=== PATIENT | female | born 1955 | race Hispanic/Latino ===

== ENCOUNTER → 2023-02-06 | Outpatient (CLI) | payer BC | END | disposition home or self-care (01) | LOC: RAH 15:00 | PROVIDERS: ATTEND Family Medicine | DX: M47.816 Spondylosis without myelopathy or radiculopathy, lumbar region (principal); M54.42 Lumbago with sciatica, left side; M48.061 Spinal stenosis, lumbar region without neurogenic claudication | CPT/HCPCS: 72148 ==

== ENCOUNTER → 2023-03-02 | Outpatient (CLI) | payer BC | END | disposition home or self-care (01) | LOC: RAH 08:12 | PROVIDERS: ATTEND Neurological Surgery | DX: M47.817 Spondylosis without myelopathy or radiculopathy, lumbosacral region (principal); M43.26 Fusion of spine, lumbar region; M51.37 Other intervertebral disc degeneration, lumbosacral region; M48.07 Spinal stenosis, lumbosacral region | CPT/HCPCS: 72100 ==

== ENCOUNTER → 2023-03-08 | Outpatient (CLI) | payer BC | END | disposition home or self-care (01) | LOC: RAH 13:17 | PROVIDERS: ATTEND Internal Medicine | DX: I07.1 Rheumatic tricuspid insufficiency (principal); R94.31 Abnormal electrocardiogram [ECG] [EKG]; I10 Essential (primary) hypertension | CPT/HCPCS: 93306 ==

== ENCOUNTER 2023-03-13 14:00 | Observation (INO) | payer BC, MEDICARE ==
[~2023-03-13] VITALS: Ht 165.1 cm; Wt 70.0 kg
[2023-03-13 14:42] LABS: BASOPHILS % (AUTO) 0.2 % (0.0-5.0); EOSINOPHILS % (AUTO) 1.8 % (0.0-8.0); HEMATOCRIT 39.1 % (36-48); LYMPHOCYTES % (AUTO) 26.7 % (21.0-51.0); MEAN CORPUSCULAR HEMOGLOBIN 27.2 pg (27.0-33.0); MEAN CORPUSCULAR VOLUME 85.2 fL (79-99); MONOCYTES % (AUTO) 6.9 % (3.0-13.0); NEUTROPHILS % (AUTO) 64.1 % (40.0-77.0); PLATELET COUNT (AUTO) 289 K/uL (130-400); RED BLOOD CELL COUNT(AUTO) 4.59 MIL/uL (4.00-5.50); RED CELL DISTRIBUTION WIDTH 14.9 % (11.0-15.5); WHITE BLOOD COUNT (AUTO) 9.4 K/uL (4.8-10.8)
[2023-03-13 15:09] LABS: CREATININE 0.9 mg/dL (0.5-1.5); POTASSIUM 4.5 mmol/L (3.5-5.1)
[2023-03-13 15:24] VITALS: BP 119/62
[2023-03-13] MEDS ORDERED: BUPIVACAINE/EPI/PF 0.25% 30ML VIAL IJ SCH (20:30)
[2023-03-14] VITALS (27 sets, daily range): BP systolic 97–146; BP diastolic 48–75
[2023-03-14] MEDS ORDERED: LACTATED RINGERS 1000ML 1,000 ML IV ONE (06:05)
[2023-03-14] MEDS ORDERED: CEFAZOLIN SODIUM 2 GM VIAL ONE (06:05)
[2023-03-14] MEDS: CEFAZOLIN SODIUM 1 GM VIAL IVPB PRN ×2 (06:28→08:27)
[2023-03-14] MEDS ORDERED: PREG75CA75 PO (06:32)
[2023-03-14] MEDS ORDERED: OLME5TAB29 PO (06:32)
[2023-03-14] MEDS ORDERED: PRED5TAB PO (06:32)
[2023-03-14] MEDS ORDERED: CELE-84 PO (06:32)
[2023-03-14] MEDS ORDERED: MORPHINE PF 100MG/10ML AMP IV ONE (06:38)
[2023-03-14] MEDS ORDERED: CEFAZOLIN SODIUM 1 GM VIAL ONE (06:38)
[2023-03-14] MEDS ORDERED: THROMBIN-JMI 20000 UNIT KIT TP ONE (06:38)
[2023-03-14] MEDS ORDERED: FAMOTIDINE 20MG VIAL IV ONE (07:07)
[2023-03-14] MEDS ORDERED: PROPOFOL 1000 MG/100 ML 200 ML IV ONE (07:11)
[2023-03-14] MEDS ORDERED: DEXAMETHASONE SOD PHOSPHATE 4 MG/ML 1ML VIAL ONE ×2 (07:12→07:25)
[2023-03-14] MEDS ORDERED: LIDOCAINE PF 100MG/5ML (2%) SYRINGE 5ML ONE (07:25)
[2023-03-14] MEDS ORDERED: PROPOFOL 10 MG/ML 20ML VIAL IV ONE (07:25)
[2023-03-14] MEDS ORDERED: ROCURONIUM 10MG/1ML SYR 10 MG/ML ML ONE (07:26)
[2023-03-14] MEDS ORDERED: PHENYLEPHRINE HCL 10 MG/ML 1ML VIAL IV ONE (07:26)
[2023-03-14] MEDS ORDERED: FENTANYL CITRATE PF 50 MCG/1 ML 2ML VIAL ONE ×3 (07:26→13:30)
[2023-03-14] MEDS ORDERED: ONDANSETRON 4MG INJ ONE (07:26)
[2023-03-14] MEDS ORDERED: GLYCOPYRROLATE 1 MG/5 ML SYRINGE ONE (07:26)
[2023-03-14] MEDS ORDERED: MIDAZOLAM HCL 1 MG/ML 2ML VIAL ONE (07:26)
[2023-03-14] MEDS ORDERED: BUPIVACAINE/EPI/PF 0.25% 30ML VIAL IJ ONE (07:30)
[2023-03-14] MEDS ORDERED: CEFAZOLIN SODIUM 2 GM VIAL IVPB ONE (07:45)
[2023-03-14] MEDS ORDERED: NEOSTIGMINE 5MG/5ML SYR IV ONE (12:52)
[2023-03-14] MEDS ORDERED: PROMETHAZINE HCL 25 MG/ML 1ML AMPULE IM PRN (13:00)
[2023-03-14] MEDS ORDERED: MORPHINE 2 MG SYG IVP PRN (13:00)
[2023-03-14] MEDS: DEXAMETHASONE SOD PHOSPHATE 4 MG/ML 1ML VIAL IVP SCH ×2 (13:00→18:55)
[2023-03-14] MEDS: LACTATED RINGERS 1000ML 1,000 ML IV SCH (13:00)
[2023-03-14] MEDS ORDERED: 0.9%NACL 10ML VIAL IVP PRN (13:00)
[2023-03-14] MEDS: CEFAZOLIN SODIUM 1 GM VIAL IVPB SCH ×2 (13:00→19:59)
[2023-03-14] MEDS: PREGABALIN 75 MG CAPSULE PO SCH ×2 (14:00→19:59)
[2023-03-14] MEDS: HYDROCODONE/ACETAMINOPHEN 5/325 MG TAB PO PRN (16:33)
[2023-03-14] MEDS: CELECOXIB 200 MG CAP PO SCH (19:59)
[2023-03-15] VITALS: BP 107/59
[2023-03-15] MEDS: DEXAMETHASONE SOD PHOSPHATE 4 MG/ML 1ML VIAL IVP SCH ×2 (01:19→09:46)
[2023-03-15] MEDS: LACTATED RINGERS 1000ML 1,000 ML IV SCH (02:20)
[2023-03-15 04:00] VITALS: BP 110/62
[2023-03-15] MEDS: HYDROCODONE/ACETAMINOPHEN 5/325 MG TAB PO PRN ×2 (04:11→09:47)
[2023-03-15] MEDS: CEFAZOLIN SODIUM 1 GM VIAL IVPB SCH (04:15)
[2023-03-15 08:40] VITALS: BP 109/54
[2023-03-15] MEDS: PREGABALIN 75 MG CAPSULE PO SCH (09:46)
[2023-03-15] MEDS: CELECOXIB 200 MG CAP PO SCH (09:46)
[2023-03-16] MEDS ORDERED: PREDNISONE 5 MG TABLET PO SCH (09:00)
== END 2023-03-15 11:45 | disposition home or self-care (01) ==
LOC: EDSTATUS 14:00 → DAHIP 03-14 05:48 → 4DH 03-14 14:25
PROVIDERS: ADMIT Neurological Surgery; ATTEND Neurological Surgery
DX: M48.062 Spinal stenosis, lumbar region with neurogenic claudication (principal); Z20.822 Contact with and (suspected) exposure to COVID-19; M48.061 Spinal stenosis, lumbar region without neurogenic claudication; M06.9 Rheumatoid arthritis, unspecified; M54.16 Radiculopathy, lumbar region; I10 Essential (primary) hypertension; K21.9 Gastro-esophageal reflux disease without esophagitis; Z98.1 Arthrodesis status; Z79.899 Other long term (current) drug therapy
CPT/HCPCS: 80048; 85025; 87426; 36415; 71045; 20680; 22899; 22612; 63047; 63048; 20936; 96365; 96375; 82948 ×3; 72110; 96376; A6260; G0378 ×22; A4663; J7120 ×2; A4344; J3490 ×3; J3010 ×3; J0690 ×4; J2710; J2001; J2250; J2704 ×2; J2274; J2405; J1100 ×5; J2370; A4649; C1776; A4215; A4223; A4222; A4221; A4600; A4510

== ENCOUNTER 2024-03-30 10:08 | Emergency (ER) | payer BC, MEDICARE ==
[~2024-03-30] VITALS: Ht 165.1 cm; Wt 65.8 kg
[~2024-03-30 10:08] MED LIST: CELE-125 PO; OLME5TAB29 PO; PRED5TAB PO; PREG75CA76 PO
[2024-03-30] MEDS: KETOROLAC 15MG/ML VIAL (15MG/ML) IM ONE (11:11)
[2024-03-30] MEDS ORDERED: KETO10TA2 PO (11:45)
[2024-03-30] MEDS: MORPHINE 2 MG SYG IM ONE (11:51)
[2024-03-30 12:15] VITALS: BP 119/58; PULSE 75; RESP 18; O2SAT 98
== END 2024-03-30 12:15 | disposition home or self-care (01) ==
LOC: EDH 10:08
DX: G89.29 Other chronic pain (principal); M25.551 Pain in right hip; I10 Essential (primary) hypertension; M06.9 Rheumatoid arthritis, unspecified; Z79.899 Other long term (current) drug therapy; Z98.890 Other specified postprocedural states
CPT/HCPCS: 99284; 72192; 96372 ×2; J2270; J1885